=== PATIENT | female | born 1995 ===

== ENCOUNTER 2020-10-13 18:26 | Emergency (ER) | payer OTHER ==
[2020-10-13 21:33] VITALS: BP 113/78
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
== END 2020-10-14 01:10 | disposition home or self-care (01) ==
LOC: ED 18:26
DX: M54.2 Cervicalgia (principal); M54.5 Low back pain; R10.30 Lower abdominal pain, unspecified; Z79.899 Other long term (current) drug therapy; V87.7XXA Person injured in collision between other specified motor vehicles (traffic), initial encounter; Y93.89 Activity, other specified; Y92.488 Other paved roadways as the place of occurrence of the external cause; Y99.8 Other external cause status
CPT/HCPCS: 72040; 72100; 74019; 99283